=== PATIENT | female | born 1990 | race African-American/Black ===

== ENCOUNTER 2020-01-07 00:33 | Emergency (ER) | payer MEDICAID ==
[~2020-01-07] VITALS: Ht 165.1 cm; Wt 72.0 kg
[2020-01-07] MEDS ORDERED: ONDANSETRON HCL 4MG/2ML INJ IV ONE (01:00)
[2020-01-07] MEDS ORDERED: SODIUM CHLORIDE 0.9% 1,000 ML IV ONE (01:00)
[2020-01-07] MEDS ORDERED: SILVER SULFADIAZINE 1% CREAM 25GM TOP ONE (01:00)
[2020-01-07] MEDS ORDERED: TETANUS, DIPHTHERIA, PERTUSSIS VAC/PF 0.5ML (>7YR OLD) IM ONE (01:00)
[2020-01-07] MEDS ORDERED: MORPHINE SULFATE 4 MG/ML CPJ (NOT FOR IM USE) IV ONE (01:00)
[2020-01-07] MEDS ORDERED: CEFAZOLIN 1000MG PREMIX 50 ML IV ONE (01:00)
[2020-01-07 04:18] VITALS: BP 103/67
== END 2020-01-07 04:20 | disposition home or self-care (01) ==
LOC: ER 00:39
DX: T24.211A Burn of second degree of right thigh, initial encounter (principal); T24.212A Burn of second degree of left thigh, initial encounter; T23.201A Burn of second degree of right hand, unspecified site, initial encounter; T26.40XA Burn of unspecified eye and adnexa, part unspecified, initial encounter; X08.8XXA Exposure to other specified smoke, fire and flames, initial encounter; Y93.89 Activity, other specified; Y92.89 Other specified places as the place of occurrence of the external cause; Y99.8 Other external cause status
CPT/HCPCS: 90471; 90715; 96365; 96375; 99284; J0690; J2270; J2405; J7030